=== PATIENT | male | born 1995 | race Caucasian/White ===

== ENCOUNTER 2017-02-28 09:14 | Emergency (ER) | payer SELFPAY ==
[2017-02-28 11:51] VITALS: BP 134/64
== END 2017-02-28 11:52 | disposition home or self-care (01) ==
LOC: ED 09:14
DX: S52.135A Nondisplaced fracture of neck of left radius, initial encounter for closed fracture (principal); S93.402A Sprain of unspecified ligament of left ankle, initial encounter; W17.89XA Other fall from one level to another, initial encounter; Y93.89 Activity, other specified; Y92.89 Other specified places as the place of occurrence of the external cause; Y99.8 Other external cause status
CPT/HCPCS: J3010; Q0162